=== PATIENT | female | born 2000 | race Caucasian/White ===

== ENCOUNTER 2024-05-16 16:46 | Emergency (ER) | payer OTHER, SELFPAY ==
[2024-05-16 16:46] VITALS: BP 143/98; PULSE 75; RESP 16; TEMP 36.6; O2SAT 98; BMI 33.1
--- NOTE | 2024-05-16 17:38 | EDS_ITS ---
HPI HPI - Female History of Present Illness Chief Complaint: PFSH PFSH Medical History no medical history Home Medications ?Medication ?Instructions ?Recorded ?Last Taken ?Type cephalexin 500 mg capsule 500 mg PO TID 5 days #15 caps 05/16/24 Unknown Rx Allergy/AdvReac Type Severity Reaction Status Date / Time No Known Allergies Allergy Verified 05/16/24 16:48 Family History no significant family his Surgical History no surgical history Social History Smoking Status: Never smoker EXAM Physical Exam Const Vital Signs: 05/16/24 16:46 05/16/24 18:46 05/16/24 20:00 Temperature 98 F Temperature Source Temporal Pulse Rate 75 94 94 Respiratory Rate 16 16 16 Blood Pressure 143/98 H 129/76 H 126/77 H Blood Pressure Mean 113 93 93 Pulse Ox 98 99 99 Oxygen Delivery Method Room Air Room Air Room Air [facility] MDM Narrative Medical decision making narrative: HISTORY OF PRESENT ILLNESS: 23-year-old female presents with lower abdominal pain, vaginal bleeding. No she is 5 weeks . Notes abdominal pain is crampy. No she has not gotten ultrasound this . No she is a G2, P1. No history of miscarriages. No history of ovarian or fallopian tube ambulation. No history of IVF or other infertility treatments. No family history of miscarriages. REVIEW OF SYSTEMS: Pertinent positives: Lower abdominal pain, vaginal bleeding Pertinent negatives: Fever, vomiting PHYSICAL EXAM: Nursing triage notes reviewed, Vital signs reviewed Constitutional: please see mdm HENT: MMM Eyes: Pupils equal round and reactive to light, Extraocular muscles intact Neck: No stridor, no JVD, full neck ROM Lungs: Clear to auscultation, No wheezing or rales. No increased work of breathing, no conversational dyspnea, no accessory muscle use, no nasal flaring. No respiratory distress noted Heart: Regular rate and rhythm, No murmurs, No rubs and No gallops, 2+ distal pulses (radial, femoral, posterior tibial) in all extremities Abdomen: Soft, there is no tenderness, rigidity, rebound or guarding, no obvious peritoneal signs, no palpable pulsatile abdominal masses, no auscultated abdominal bruit : No CVAT Extremities: No edema Neuro: No focal neurological deficits, cranial nerves II through XII intact, 5/5 strength in all extremities. Intact sensation to light touch in all extremities, 2+ reflexes bilateral patella tendons. Normal gait. No ataxia. Skin: No rash or lesions noted MEDICAL DECISION MAKING: Chief Complaint: Abdominal pain, vaginal bleeding, early External records reviewed: Imaging reviewed: No recent advanced [facility] Factors affecting care: First trimester MDM Narrative: Patient was hemodynamically stable, afebrile nontoxic-appearing. Abdomen was nonperitoneal neck I considered the following differential diagnosis: Miscarriage, ectopic I obtained a broad lab and imaging workup to further elucidate etiology the patient complaints. I treat the patient with IV fluids and Toradol Tylenol. ALL IMAGES (IF OBTAINED) HAVE BEEN PERSONALLY REVIEWED AND INTERPRETED BY MYSELF. CBC without leukocytosis, no anemia or thrombocytopenia BMP without evidence of significant electrolyte abnormalities, no anion gap, no acute kidney injury. Urinalysis without evidence of infection Blood type is O- patient will require RhoGAM Transvaginal ultrasound showed no evidence of definitive intrauterine or ectopic . Did show left adnexal anechoic lesion. Discussed with PLASTICS ENGINEER Dr. Teresa Glass. She reviewed the patient's labs and images. She felt the patient's lesion in the left adnexa related to corpus luteum cyst rather than ectopic given stable vitals, no significant pain, no significant distress, no significant anemia, and very low quantitative hCG. I suspect the patient may be an early miscarriage. Dr. Glass further recommended 48-hour hCG check (was ordered on paper form and given to patient) and prompt follow-up in her office. I will attempt to CC her on this chart. The patient and/or family, caregivers express understanding. The patient and/or family, caregivers agrees with the plan. Shared decision making: I will have a discussion with the patient and or visitors regarding risk/benefits of further testing or admission. They will be made aware of of the risk/benefits inherent in this decision they will be given the opportunity to voice understanding. Total critical care time today provided was at least 0 minutes. This excludes separately billable procedures. Critical care time (if documented) is secondary to the patient having high probability of clinically significant/life threatening deterioration in the patient's condition which required my urgent intervention. Impression: 1. First trimester 2. Vaginal bleeding Dispo: Discharge This note was generated with [employer] dictation software. It may contain incorrect words, spelling, and punctuation that were not noted in review of the chart prior to signing. Lab Data Labs: Laboratory Results - last 24 hr 05/16/24 05/16/24 18:06 18:31 WBC 8.1 RBC 5.44 H Hgb 13.1 Hct 41.5 MCV 76.3 L MCH 24.1 L MCHC 31.6 L RDW Std Deviation 39.1 RDW Coeff of Pattie 14.4 Plt Count 310 MPV 9.2 Immature Gran % (Auto) 0.500 Neut % (Auto) 57.8 Lymph % (Auto) 32.4 [place] % (Auto) 7.8 Eos % (Auto) 0.9 Baso % (Auto) 0.6 Absolute Neuts (auto) 4.7 Absolute Lymphs (auto) 2.62 Nucleated RBC % 0 Sodium 141 Potassium 3.7 Chloride 110 H Carbon Dioxide 28.0 Anion Gap 3 L BUN 10 Creatinine 0.69 Estim Creat Clear Calc 145.79 Est GFR (MDRD) Af Amer 135 Est GFR (MDRD) Non-Af 112 BUN/Creatinine Ratio 14.5 Glucose 94 Calcium 9.0 HCG, Quant 20 H Urine Color Red Urine Clarity Turbid Urine pH 8.0 Ur Specific Pfeifer 1.015 Urine Protein 100 H Urine Glucose (UA) Normal Urine Ketones 5 H Urine Occult Blood 250 H Urine Nitrite Negative Urine Bilirubin Negative Urine Urobilinogen Normal Ur Leukocyte Esterase 100 H Urine RBC > 100 SEEN Urine WBC 5-10 SEEN Ur Squamous Epith Cells 5-10 SEEN Amorphous Sediment 1+ PHOS Urine Bacteria 0 SEEN Urine Mucus 0 SEEN Blood Type O NEGATIVE Radiography Diagnostic Testing: Clinical Impression(s) from Imaging Studies Obstetrics Ultrasound 05/16/24 17:52 IMPRESSION: Nonspecific nonvisualization of gestational sac, not expected at current hCG. Differential includes normal early , failed , with ectopic not excluded. Left adnexal unilocular anechoic cyst without complexity or surrounding finding to suggest ectopic . OB evaluation recommended. Recommend trending of hCG in 48 hours with follow-up ultrasound. Normal ovaries. Electronically Signed: Patrick Pizarro MD at 20:50 EDT , Discharge Plan Triage Chief Complaint: Other Complaint: Abd Pain Vag Bleeding ED Provider: Srinivasa Brambila Dx/Rx/DC Orders Instructions: Ectopic , Bleeding During Early Prescriptions: New cephalexin 500 mg capsule 500 mg PO TID 5 Days Qty: 15 0RF Primary Care Provider: Marek Physician,Luanne Primary Referrals: Teresa Glass MD [[facility] Staff - Active Staff] - Activity Restrictions/Additional Instructions: Thank you for trusting us with your care today! Please take Tylenol (2 pills, 650 mg) every 6 hours as needed for pain and fever control. You will need to return in 48 hours for repeat to measure your hormone. Please return to the emergency department if your symptoms change or worsen. Specifically if you develop severe lower abdominal pain, you lose consciousness, have heavy vaginal bleeding, you develop chest pain, shortness of breath. Your urine was shown to have inflammation. I sent your urine for culture. I prescribed you prophylactic antibiotics to treat asymptomatic bacteriuria in . I am treating you with an antibiotic because if left untreated this can cause labor Please follow with your primary care physician for further outpatient evaluation and management. Print Language: Urdu Disposition Disposition: Home, Self Care
--- NOTE | 2024-05-16 17:52 | US_ITS ---
INDICATION: Lower abdominal pain, vaginal bleeding early pregn EXAMINATION: Ultrasound US OB Transvaginal TECHNIQUE: Transvaginal (for optimal evaluation of the adnexa) pelvic ultrasound was performed. Grayscale, spectral waveform, and color flow Doppler evaluation of the adnexa. COMPARISON: None. LMP: [April 08, 2024 correlating with 5 weeks 3 days gestation estimated delivery date January 13, 2025 Beta-hC FINDINGS: UTERUS: Anteverted uterus 8.1 x 3.2 x 4.6. cm with unremarkable myometrium. No visible acute or gestational sac. Endometrial stripe measures 7 mm and is homogeneous. Cervix is grossly closed RIGHT OVARY: 2.8 x 1.7 x 3.9 cm with normal parenchymal appearance and preserved arterial and venous vascular flow. LEFT OVARY: 2.5 x 1.4 x 1.7 cm. with normal parenchymal appearance and preserved arterial and venous vascular flow. . FREE FLUID: None. Left adnexal anechoic 1 cm cyst. US/Transvaginal w/Preg US IMPRESSION: Nonspecific nonvisualization of gestational sac, not expected at current hCG. Differential includes normal early , failed , with ectopic not excluded. Left adnexal unilocular anechoic cyst without complexity or surrounding finding to suggest ectopic . OB evaluation recommended. Recommend trending of hCG in 48 hours with follow-up ultrasound. Normal ovaries. Electronically Signed: Patrick Pizarro MD at 20:50 EDT ,
[2024-05-16] MEDS: 0.9% Normal Saline (1000mL) 1,000 ML 999 ML IV (18:20)
[2024-05-16] MEDS: Acetaminophen 325 MG Tablet 650 MG PO (18:21)
[2024-05-16 18:39] LABS: Bacteria 0 SEEN /hpf (None Seen); Mucous, Urine 0 SEEN /hpf (<or=2+)
[2024-05-16 18:41] LABS: Absolute Lymphocyte Count 2.62 X10^3/uL (0.83-4.51); Absolute Neutrophil Count 4.7 X10^3/uL (2.0-7.7); Basophil# 0.05 X10^3/uL; Basophil% 0.6 % (0-1); Eosinophil# 0.07 X10^3/uL; Eosinophils% 0.9 % (0-5); Hematocrit 41.5 % (37-47); Hemoglobin 13.1 g/dL (12.0-15.0); Lymphocyte # 2.62 X10^3/ul (0.83-4.51); Lymphocyte % 32.4 % (19-41); Mean Corp Hgb Conc 31.6 g/dL (32-36); Mean Corpuscular Hgb 24.1 pg (27.0-32.0); Mean Corpuscular Volume 76.3 fL (81-99); Mean Platelet Vol. 9.2 fl (6.2-12.0); Monocyte# 0.63 X10^3/uL; Monocyte% 7.8 % (0-10); NRBC Flagged by Analyzer 0 % (0-5); Neutrophil # 4.67 X10^3/uL (2.7-7.7); Neutrophil % 57.8 % (47-70); Platelet Count 310 K/mm3 (150-450); RBC Distribution Width CV 14.4 % (11.6-14.6); RBC Distribution Width SD 39.1 fl (35.1-43.9); Red Blood Count 5.44 M/mm3 (4.2-5.4); White Blood Count 8.1 K/mm3 (4.4-11.0)
[2024-05-16 18:46] VITALS: BP 129/76; PULSE 94; RESP 16; O2SAT 99
[2024-05-16 18:51] LABS: Color, Urine Red (Yellow); Glucose, Dipstick Normal (Normal); Ketone-Dipstick 5 mg/dl (Negative); Leukocyte Esterase-Dipstick 100 /ul (Negative); Nitrite-Dipstick Negative (Negative); Occult Blood-Urine 250 /ul (Negative); Protein-Dipstick 100 mg/dl (Negative); Specific Gravity, Urine 1.015 (1.002-1.030); Urine Bilirubin Dipstick Negative (Negative); Urine Clarity Turbid (Clear); Urine Urobilinogen Normal (Normal)
[2024-05-16 18:57] LABS: Anion Gap 3 (5-15); BUN 10 mg/dL (7-18); BUN/Creat Ratio 14.5 RATIO (10-20); Chloride 110 mmol/L (98-107); Creatinine, Serum 0.69 mg/dL (0.55-1.02); EST Glomerular Filtration Rate 112 mL/min (>60); Est Glom Filt Rate - Afr Amer 135 mL/min (>60); Estimated Creatinine Clearance 145.79 ml/min; Glucose 94 mg/dL (74-106); Potassium 3.7 mmol/L (3.5-5.1); Sodium Level 141 mmol/L (136-145)
[2024-05-16 19:02] LABS: hCG Titer Quant., Serum 20 mIU/mL (1-3)
[2024-05-16 19:06] LABS: Red Blood Cells-Urine > 100 SEEN /hpf (0-5); Squamous Epithelial Cells - UA 5-10 SEEN /hpf (5-10); White Blood Cells 5-10 SEEN /hpf (0-5)
[2024-05-16 19:07] LABS: Amorphous Sediment 1+ PHOS
[2024-05-16 20:00] VITALS: BP 126/77; PULSE 94; RESP 16; O2SAT 99
--- NOTE | 2024-05-16 22:32 | ED.RN ---
UNABLE TO SCAN RHOGAM INTO eTAR. RHOGAM WAS VERIFIED WITH MARISSA, NURSING AIRCONDITIONING PLANT OPERATOR. VERIFICATION BLOOD WORK FILLED OUT AND SIGNED BY BOTH RNS. THIS RN CALLED BLOOD BANK, PHARMACY AND [facility] TO SEE IF THERE WAS SOMETHING ELSE TO DO FOR THE ERROR IN THE eTAR. NONE COULD PROVIDE ANSWERS AT THIS TIME.
[2024-05-16 22:34] VITALS: BP 118/86; PULSE 80; RESP 18; O2SAT 98
[2024-05-16 22:36] VITALS: BP 123/73; PULSE 87; RESP 16; TEMP 36.4; O2SAT 100
== END 2024-05-16 22:38 | disposition home or self-care (01) ==
PROVIDERS: Emergency Provider Emergency Medicine; Visit Provider Emergency Medicine
DX: O20.9 Hemorrhage in early pregnancy, unspecified (principal); O34.81 Maternal care for other abnormalities of pelvic organs, first trimester; N83.12 Corpus luteum cyst of left ovary; Z3A.01 Less than 8 weeks gestation of pregnancy; Z67.41 Type O blood, Rh negative
CPT/HCPCS: 76817; 80048; 81001; 84702; 85025; 86900; 86901; 90384; 96360; 99284; J7030; A4216; J2790; J2791

== ENCOUNTER → 2024-05-18 | Outpatient (CLI) | payer OTHER, SELFPAY ==
[2024-05-18 12:28] LABS: hCG Titer Quant., Serum 18 mIU/mL (1-3)
== END | disposition home or self-care (01) ==
LOC: LAB 11:41
PROVIDERS: Referring Provider Emergency Medicine; Visit Provider Emergency Medicine
DX: Z34.90 Encounter for supervision of normal pregnancy, unspecified, unspecified trimester (principal)
CPT/HCPCS: 36415; 84702

== ENCOUNTER → 2024-05-20 | Outpatient (CLI) | payer OTHER, SELFPAY ==
[2024-05-20 13:20] LABS: hCG Titer Quant., Serum 25 mIU/mL (1-3)
== END | disposition home or self-care (01) ==
LOC: LAB 12:06
PROVIDERS: Referring Provider Obstetrics & Gynecology; Visit Provider Obstetrics & Gynecology
DX: O20.0 Threatened abortion (principal)
CPT/HCPCS: 36415; 84702

== ENCOUNTER → 2024-05-23 | Outpatient (CLI) | payer OTHER, SELFPAY ==
[2024-05-23 09:16] LABS: hCG Titer Quant., Serum 52 mIU/mL (1-3)
== END | disposition home or self-care (01) ==
LOC: LAB 07:10
PROVIDERS: Referring Provider Obstetrics & Gynecology; Visit Provider Obstetrics & Gynecology
DX: O20.0 Threatened abortion (principal)
CPT/HCPCS: 36415; 84702

== ENCOUNTER 2024-05-25 16:12 | Emergency (ER) | payer OTHER, SELFPAY ==
[2024-05-25 16:13] VITALS: BP 119/93; PULSE 110; RESP 16; TEMP 36.1; O2SAT 97; BMI 32.8
--- NOTE | 2024-05-25 16:41 | EDS_ITS ---
HPI HPI - Female History of Present Illness Chief Complaint: Female C/O Informant: patient Pain Onset: Today Context: Gradual Onset Timing: Continuous Worsened by: - (Nothing) Relieved by: - (Nothing) Bleeding Issue: Negative for Vaginal bleeding Associated Symptoms Associated Symptoms: Negative for Dysuria, Frequency, Urgency or Hematuria Narrative Narrative: Patient presents for methotrexate injection. Patient states she is approximately 6 weeks . Patient states she had outpatient lab work drawn today. Patient states that her MARKETING DEVELOPMENT SPECIALIST is concerned over possible ectopic . Patient states her quantitative hCGs have not been increasing as expected. Patient denies any pain. Patient denies any nausea or vomiting. Patient denies any abnormal vaginal bleeding or discharge. Patient denies any fevers or chills. PFSH PFSH Medical History no medical history no medical history Home Medications ?Medication ?Instructions ?Recorded ?Last Taken ?Type cephalexin 500 mg capsule 500 mg PO TID 5 days #15 caps 05/16/24 Unknown Rx Allergy/AdvReac Type Severity Reaction Status Date / Time No Known Allergies Allergy Verified 05/25/24 16:13 Family History (Updated 05/20/24 @ 11:30 by Cristina Spann) Grandmother Heart disease Hypertension Bronchial breathing Uncle Hypertension Mother Bronchial breathing Other Breast cancer Surgical History no surgical history no surgical history Social History (Updated 05/20/24 @ 11:27 by Cristina Spann) adopted: No household members: spouse and significant other housing: house number of children: 1 current occupational status: employed current occupation: [employer] pets and animals: Yes pets and animals: dog(s) sexually active: Yes Smoking Status: Former smoker how long ago did patient quit smoking: Quit when with first 2 years ago second hand exposure: No alcohol intake: current alcohol intake frequency: a few times a month details: not while substance use type: does not use caffeine: Yes Type: carbonated beverages and tea seatbelt use: always do you feel safe at home: Yes additional social history: Spouse - Nahun ( EMT in [employer]) ROS ROS ED Constitutional Constitutional ED: Denies chills or fever(s) Eyes Eyes: Denies blurry vision or change in vision ENT ENT ED: Denies rhinorrhea or sore throat Cardiovascular Cardiovascular: Denies chest pain or palpitations Respiratory/Chest Respiratory/Chest: Denies cough or dyspnea Gastrointestinal Gastrointestinal: Denies nausea or vomiting Genitourinary Genitourinary ED: Denies dysuria or hematuria Musculoskeletal Musculoskeletal: Denies back pain or neck pain Integumentary Denies abscess or rash Neurologic Neurologic: Denies headache(s) or weakness Allergic/Immunologic Allergic/Immunologic ED: Denies mouth swelling or urticaria EXAM Physical Exam Const Vital Signs: 05/25/24 16:13 Temperature 96.9 F L Temperature Source Temporal Pulse Rate 110 H Respiratory Rate 16 Blood Pressure 119/93 H Blood Pressure Mean 101 Pulse Ox 97 Oxygen Delivery Method Room Air Positive well nourished and well developed General Appearance ED: well developed and NAD HEENT Reports moist mucous membranes Neck supple and no JVD Resp normal respiratory effort and clear to auscultation bilaterally Cardio regular rate and regular rhythm GI soft to palpation, non-tender and non-distended Neuro oriented x3, CN's II-XII intact bilaterally and no sensory deficits noted Sensorium / Orientation: alert Motor Exam: strength 5/5 throughout Psych mental status grossly normal MDM MDM MDM Narrative Medical decision making narrative: Previous labs were reviewed. Patient's quantitative hCG today was reviewed and was 56. Quantitative hCG from 2 days ago was 52. Case was discussed with Dr. Garcia from MARKETING DEVELOPMENT SPECIALIST. She recommended giving the patient the methotrexate. This was ordered. She will follow-up with the patient in 1 week. Patient was instructed to get a repeat quantitative hCG in 4 days and 7 days. She stated her office will contact her regarding these appointments. Patient was instructed to expect some cramping and bleeding. The patient was instructed to return to the emergency department if worse in any way. Patient understood and was agreeable with the plan. All questions were answered. Discharge Plan Triage Chief Complaint: Female C/O ED Provider: Diaz Will Dx/Rx/DC Orders Clinical Impression: Ectopic , First trimester Instructions: ED Methotrexate for Ectopic ... Prescriptions: No Action cephalexin 500 mg capsule 500 mg PO TID 5 Days Qty: 15 0RF Primary Care Provider: Care Physician,No Primary Referrals: Ana Mathews DO [Med Staff - Active Staff] - 1 Week Care Physician,No Primary [Primary Care Provider] - Activity Restrictions/Additional Instructions: You will need to have repeat quantitative hCGs drawn in [address] Garcia's office will arrange for this. Stop taking any vitamins. Print Language: Upper Sorbian Disposition Disposition: Home, Self Care
[2024-05-25 18:13] VITALS: BP 91/58; PULSE 80; RESP 16; O2SAT 100
[2024-05-25] MEDS: METHOTREXATE IM (18:15)
[2024-05-25 18:37] VITALS: BP 91/58; PULSE 80; RESP 16; TEMP 36.6; O2SAT 100
== END 2024-05-25 18:39 | disposition home or self-care (01) ==
PROVIDERS: Emergency Provider Emergency Medicine; Visit Provider Emergency Medicine
DX: O00.90 Unspecified ectopic pregnancy without intrauterine pregnancy (principal); Z87.891 Personal history of nicotine dependence
CPT/HCPCS: 96372; 99282; J9260

== ENCOUNTER → 2024-05-25 | Outpatient (CLI) | payer OTHER, SELFPAY ==
[2024-05-25 09:05] LABS: hCG Titer Quant., Serum 56 mIU/mL (1-3)
== END | disposition home or self-care (01) ==
LOC: LAB 07:35
PROVIDERS: Referring Provider Obstetrics & Gynecology; Visit Provider Obstetrics & Gynecology
DX: O20.0 Threatened abortion (principal)
CPT/HCPCS: 36415; 84702

== ENCOUNTER → 2024-05-29 | Outpatient (CLI) | payer OTHER, SELFPAY ==
[2024-05-29 12:45] LABS: hCG Titer Quant., Serum 56 mIU/mL (1-3)
== END | disposition home or self-care (01) ==
LOC: LAB 10:40
PROVIDERS: Referring Provider Obstetrics & Gynecology; Visit Provider Obstetrics & Gynecology
DX: O00.90 Unspecified ectopic pregnancy without intrauterine pregnancy (principal)
CPT/HCPCS: 36415; 84702

== ENCOUNTER → 2024-06-01 | Outpatient (CLI) | payer OTHER, SELFPAY ==
[2024-06-01 08:16] LABS: hCG Titer Quant., Serum 37 mIU/mL (1-3)
== END | disposition home or self-care (01) ==
LOC: LAB 06:45
PROVIDERS: Referring Provider Obstetrics & Gynecology; Visit Provider Obstetrics & Gynecology
DX: O00.90 Unspecified ectopic pregnancy without intrauterine pregnancy (principal)
CPT/HCPCS: 36415; 84702

== ENCOUNTER → 2024-06-08 | Outpatient (CLI) | payer OTHER, SELFPAY ==
[2024-06-08 14:54] LABS: hCG Titer Quant., Serum 1 mIU/mL (1-3)
== END | disposition home or self-care (01) ==
LOC: LAB 13:45
PROVIDERS: Referring Provider Obstetrics & Gynecology; Visit Provider Obstetrics & Gynecology
DX: O00.90 Unspecified ectopic pregnancy without intrauterine pregnancy (principal)
CPT/HCPCS: 36415; 84702

== ENCOUNTER → 2024-07-05 | Outpatient (CLI) | payer OTHER, SELFPAY ==
[2024-07-05 11:14] LABS: hCG Titer Quant., Serum 263 mIU/mL (1-3)
== END | disposition home or self-care (01) ==
LOC: LAB 09:23
PROVIDERS: Referring Provider Obstetrics & Gynecology; Visit Provider Obstetrics & Gynecology
DX: O09.10 Supervision of pregnancy with history of ectopic pregnancy, unspecified trimester (principal); Z3A.00 Weeks of gestation of pregnancy not specified
CPT/HCPCS: 36415; 84702

== ENCOUNTER → 2024-07-07 | Outpatient (CLI) | payer OTHER, SELFPAY ==
[2024-07-07 08:41] LABS: hCG Titer Quant., Serum 750 mIU/mL (1-3)
== END | disposition home or self-care (01) ==
LOC: LAB 07:29
PROVIDERS: Referring Provider Obstetrics & Gynecology; Visit Provider Obstetrics & Gynecology
DX: O09.10 Supervision of pregnancy with history of ectopic pregnancy, unspecified trimester (principal); Z3A.00 Weeks of gestation of pregnancy not specified
CPT/HCPCS: 36415; 84702

== ENCOUNTER → 2024-07-15 | Outpatient (CLI) | payer OTHER, SELFPAY ==
--- NOTE | 2024-07-15 11:14 | US_ITS ---
STUDY: FIRST TRIMESTER OBSTETRICAL ULTRASOUND REASON FOR EXAM: Female, 23 years old dating/viability LMP: Unknown TECHNIQUE: Transvaginal TECHNICAL QUALITY: Adequate. PRIOR ULTRASOUND: Comparison is made with prior study dated May 16, 2024. FINDINGS: There is visualization of a single gestational sac in a normal intrauterine position. The mean sac diameter (MSD) measures 1.2 cm, indicating an estimated gestational age (EGA) of 6 weeks, 0 days. The gestational sac shape is within normal limits. There is a visualized yolk sac. The yolk sac measures 3 mm. The placenta is non-visualized. There is no demonstrated embryo ( pole). . The estimated gestation age (EGA) by US is 6 weeks, 0 days. The estimated date of delivery (SHANI) by US is March 10, 2024. The uterus measures 8.9 cm x 6.3 cm x 4.8 cm. There is no demonstrated uterine fibroid. Adjacent to the gestational sac, there is a 2.7 cm x 1.6 cm x 0.9 cm anechoic fluid collection suggestive of possible subchorionic bleed. The cervix is closed. The right ovary measures 2.4 cm x 1.9 cm x 1.9 cm. There is no right ovarian cyst. There is no visualized right adnexal mass or complex lesion. The left ovary measures 2.6 cm x 2.1 cm x 2 cm. A small left paraovarian cyst is seen. There is no visualized left adnexal mass or complex lesion. There is no fluid in the cul de sac. US/Transvaginal w/Preg US IMPRESSION: Intrauterine gestational sac containing a yolk sac. This corresponds to 6 weeks. No pole is seen. Findings suggestive of a small subchorionic bleed. Electronically Signed: Carter Lyman MD at 14:34 EDT ,
== END | disposition home or self-care (01) ==
LOC: US 11:13
PROVIDERS: Referring Provider Obstetrics & Gynecology; Visit Provider Obstetrics & Gynecology
DX: Z34.90 Encounter for supervision of normal pregnancy, unspecified, unspecified trimester (principal); Z3A.00 Weeks of gestation of pregnancy not specified
CPT/HCPCS: 76817

== ENCOUNTER → 2024-07-18 | Outpatient (CLI) | payer OTHER, SELFPAY ==
[2024-07-18 17:49] LABS: hCG Titer Quant., Serum 15740 mIU/mL (1-3)
== END | disposition home or self-care (01) ==
PROVIDERS: Referring Provider Nurse Practitioner Women's Health; Visit Provider Nurse Practitioner Women's Health
DX: Z34.90 Encounter for supervision of normal pregnancy, unspecified, unspecified trimester (principal); Z3A.00 Weeks of gestation of pregnancy not specified
CPT/HCPCS: 36415; 84702

== ENCOUNTER → 2024-07-29 | Outpatient (CLI) | payer OTHER, SELFPAY ==
--- OUTSIDE RECORDS SUMMARY | 2024-07-29 16:02 | XMS RPT_ITS | CCD ---
Author Organization [facility] Results Test Name Value Interpretation Reference Range Facility Telephone Encounteron 2020 Electronic Engraver Authentication Interface Message Text Health Maintenance Due: Medicare AWV/PCP Visit: due Eye Exam: nd Foot Exam: nd Annual Bloodwork: nd SURESH: nd FIT: nd Normal [facility] CHEST 2 VIEW PA AND LATon CHEST 2 VIEW PA AND LAT STUDY: Chest Radiographs; 12/23/2019 18:19 INDICATION: Left side chest wall pain. COMPARISON: None Available. ACCESSION NUMBER(S): [id number] ORDERING CLINICIAN: CORNELL GARCIA DO TECHNIQUE: Frontal and lateral chest. FINDINGS: CARDIOMEDIASTINAL SILHOUETTE: Cardiomediastinal silhouette is normal in size and configuration. LUNGS: Lungs are clear. ABDOMEN: No remarkable upper abdominal findings. BONES: No acute osseous changes. IMPRESSION: No acute process. Signed by Curt Strauss MD Electronically signed by: CURT STRAUSS MD [facility] Provider Note - ED v2on 12-10 Provider Note - ED v2 Provider Note - ED v2: Chart Review: ED NOTES ED NOTES: HPI: The patient is an 18-year-old female with no significant past medical history presenting to the emergency department with a chief complaint of left-sided chest wall, neck, and shoulder pain. The patient reports that one week ago she ran into a wall. She states that she had the lower part of her jaw and the left side of her chest and shoulder into the wall. She reports that since then, she has been having pain across her chest on the left side and into the left side of her neck. She states initially it appeared swollen but now the swelling has gone down. The patient denies any preceding illness including fevers or chills. She denies any weight loss, shortness of breath, or night sweats. She denies any difficulty swallowing. She has tried OTC analgesia and also topical application of let them Biofreeze with minimal relief of symptoms. She reports it is tender to the touch. She also states that she feels the pain when she starts to lift her left shoulder over her head. She is left-handed. She states that afterwards, she was using her arms and doing cartwheels with my friends . He has no additional complaints and present in both right emergency department accompanied by her mother. She denies current . Exam: On exam, the patient's vital signs are stable. The patient is not in any apparent distress. Head atraumatic, normocephalic. TMs are clear, nares are patent, oropharynx is clear, neck is supple. No Shahid sign. No raccoon eyes. No dental injury or malocclusion. The patient has tenderness upon palpation at the base of the left sternocleidomastoid muscle. She reports pain with flexion and extension of the neck. There is no midline neck or back step-off, crepitance, deformities, or tenderness. Heart is regular in rate and rhythm, S1 and S2 are auscultated. Lungs are clear to auscultation bilaterally. The patient localizes tenderness on palpation of the sternum and clavicle on the left. There is no clavicular deformity. The patient has full active and passive range of motion of the left shoulder. Mild tenderness upon palpation of the supraspinatus. No adenopathy present in the cervical, supraclavicular or chest wall region. 5 over 5 and equal bilateral upper and lower extremities. Gait is steady. Nonfocal neurological exam. Peripheral pulses are palpable. HISTORY OF PRESENTING ILLNESS VON is a 19 year old Female and was seen by me at 23-Dec-2019 17:49 for a chief complaint of shoulder pain/injury . Other complaints include: left collarbone/shoulder pain; no injury(1). Triage Information: Most recent Vital Sign Value Date Temp (F): 97.9 12-23-2019 17:45 Temp (C): 36.6 12-23-2019 17:45 Heart Rate (beats/min): 71 12-23-2019 17:45 Respirations (breaths/min): 16 12-23-2019 17:45 SpO2 (%): 100 12-23-2019 17:45 BP Systolic (mm Hg): 134 12-23-2019 17:45 BP Diastolic (mm Hg): 83 12-23-2019 17:45 PAST MEDICAL HISTORY ATTESTATION: I have reviewed and confirmed nurse's/medic's notes for patient's medications, allergies, medical history, and surgical history PSYCHOSOCIAL SCREENING: NO: concerns for safety at home, feelings of depression, feels like hurting others and feels like hurting self CURRENT OR FORMER SUBSTANCE USE: NO: Cigarette/Tobacco, e-Cigarette/Vaping, Alcohol and Street Drugs ALLERGIES/INTOLERANCES: No documented data. HEALTH HISTORY: No documented data. OUTPATIENT MEDICATIONS: Home Medications Review Status for Reconciliation: Complete Med Status: No Current Medications SIGNIFICANT EVENTS: No documented data. LABELER: Is : no(1) Is : no(1) REVIEW OF SYSTEMS CONSTITUTIONAL: Negative for: anorexia, chills, diaphoresis, fever, malaise, weakness and weight loss EYES: Negative for: photophobia and vision changes ENMT Ears: Negative for: hearing loss and tinnitus Nose: Negative for: congestion, discharge, nose bleeds, obstruction and sneezing Mouth/Teeth: Negative for: mouth lesions and tooth trauma Throat/Neck: POSITIVE for: neck pain Negative for: dysphagia, hoarseness, throat lesions, throat pain, neck lumps, neck stiffness and swollen glands CARDIOVASCULAR: Negative for: bradycardia, chest pain, diaphoresis, edema, irregular rhythm, orthopnea, palpitations and tachycardia RESPIRATORY: Negative for: cough, dyspnea, hemoptysis, pleuritic chest pain and wheezing GASTROINTESTINAL: Negative for: abdominal pain, constipation, diarrhea, nausea and vomiting; change in bowel habits, hematochezia, melena, rectal pain and stool incontinence GENITOURINARY: Negative for: cloudy urine, dysuria, frequency, hematuria, strong smelling urine, urgency, vaginal bleeding and vaginal discharge; MUSCULOSKELETAL: POSITIVE for: neck pain and pain Negative for: back pain, sensory deficits, stiffness and weakness INTEGUMENTARY: Negative for: abrasions, dryness, hives, itching, jaundice, lesions and lumps; NEUROLOGICAL: Negative for: altered mental status, dizziness, gait abnormality, headache, loss of consciousness, loss of function and low extremity numbness; sensory deficits, upper extremity numbness and vertigo PSYCHIATRIC: Negative for: anxiety, depression, hallucinations, insomnia, memory changes and mood swings ENDOCRINE: Negative for: change in weight, cold/heat tolerance, diabetes, hot flashes, polydipsia, polyuria and thyroid trouble All other systems reviewed and are negative RESULTS/VITAL SIGNS RESULTS: Radiology Results: Impression: No acute process. Signed by Curt Strauss MD Xray Chest 2 View PA + Lateral [Dec 23 2019 7:02PM] VITAL SIGNS: T PRBP SpO2O2(LPM) %FiO2 Method 23-Dec-2019 17:45:[id number] 100 MEDICAL DECISION MAKING/ED COURSE MDM/ED COURSE: Differential diagnoses considered include musculoskeletal strain, chest wall contusion, clavicle fracture, rotator cuff strain, lymphadenopathy, thyromegaly or chondritis, nerve entrapment, rib fracture. The patient declines analgesia at this time. Chest x-ray is requested. Chest x-ray has resulted. No evidence of acute skeletal trauma or cardiopulmonary process appreciated. The patient's symptoms are more suggestive of musculoskeletal neck and chest wall strain. Outpatient conservative management as advised. The patient may take an [id number] analgesic such as acetaminophen and/or ibuprofen. She may apply topical liniment Biofreeze. She also may benefit from application of ice or heat to the site. Results of diagnostic studies are discussed with the patient and her mother. The patient verbalizes understanding. All other questions have been answered. She is advised outpatient follow-up with her primary care provider. She is welcome to return for any worsening symptoms. CLINICAL IMPRESSION Diagnosis/Annotation: ED Dx Name:Muscle strain of right shoulder region Code:S46.911A Dispostion: discharged Type: home Electronic Signatures: Cornell Garcia () (Signed 23-Dec-2019 19:12) Authored: Provider Note - ED v2 Last Updated: 23-Dec-2019 19:12 by Cornell Garcia () References: 1. Data Referenced From Triage - ED 23-Dec-2019 17:45 [facility] Risk Screen - Adult Emergenc yon 12-23-2019 Risk Screen - Adult Emergency Preferred Language: Preferred Language: Preferred Language for Discussing Health Care (patient/designee)Roger quan Advanced Directives: Advance Directive/DNRno Family Violence Adult: Abuse Screen: Are you or have you been threatened or abused physically, emotionally, or sexually by anyoneno Learning Assessment (Patient): Learning Assessment (Patient): Patient is Able to be Assessed for Learningyes Factors Influencing Readiness to Learnacuteness of illness Factors that Impact Ability to Learnnone Devices/Methods Used to Communicatenone Learning Preferenceswritten material; verbal instruction Cultural Considerationsnone Developmental Considerationsnone Scientology Considerationsnone Learning Assessment (Other Learner): Learning Assessment (Other Learner): Other learner availableno Pressure Injury/TB/Substance: Pressure Injury: Pressure Injury Present on Admissionno Do you have a coughno Substance Use Current or Former Historynever: Cigarette/Tobacco, e-Cigarette/Vaping, Alcohol, Street Drugs Admission Risk Screen: Significant IndicatorsComplete CAGE: CAGE: [place] an [place] [place] no Electronic Signatures: Wendy Lira (RN) (Signed 23-Dec-2019 17:48) Authored: Preferred Language, Advanced Directives, Family Violence Adult, Learning Assessment (Patient), Learning Assessment (Other Learner), Pressure Injury/TB/Substance, CAGE Last Updated: 23-Dec-2019 17:48 by Wendy Lria (RN) [facility] Triage - EDon 12-23-2019 Triage - ED Quick Triage: The patient and/or guardian verbally acknowledges placement for services into the following (when Urgent Care Service hours are operating):emergency department Are You no Have You Given In The Last 6 Weeksno Are You Currently Breastfeedingno Chart Review: CHIEF COMPLAINT VON STRATTON is a Female patient with a chief complaint of shoulder pain/injury. Onset of the Complaint: 22-Dec-2019 Other Complaints: left collarbone/shoulder pain; no injury Triage Date/Time: 23-Dec-2019 17:45 Pain Rating (0-10): 6 = Moderate Pain location: left shoulder Vital Signs: Temperature: 97.9F ( 36.6C) taken oral Blood Pressure: 134/83 Mean: Heart Rate: 71 Respiratory Rate: 16 Pulse Oximetry: 100% Height: 5 feet 6.00 inches. 167.6 CM Weight: 163.1 pounds. Calculated 74.0 kg. Calculated BMI (kg/m2): 26.344 Calculated BSA (m2) 1.86 Elan Coma Scale: Best Eye Response: (E4) spontaneous Best Motor Response: (M6) obeys commands Best Verbal Response: (V5) oriented [place] Score: 15 Cough lasting greater than 3 weeks: no Allergies: no Mask applied: no Last menstrual period: 19-Dec-2019 Patient has homicidal thoughts: no TANK: 4 Symptoms Are Negative For: abrasion, bleeding, bruising, deformity, difficulty bending, difficulty walking, numbness, pain (describe), decreased ROM and tingling. Risk Screens Suicide Risk Screen In the Past Month: Have you wished you were or wished you could go to sleep and not wake up no In the Past Month: Have you had any actual thoughts of killing yourself no In Your Lifetime: Have you ever done anything, started to do anything, or prepared to do anything to end your life no Emerson Fall Scale Screening Has the patient fallen before (or is the patient in the ED as a result of a fall) has not had a fall Does the patient have an impaired gait does not have impaired gait Is the patient cognitively impaired not cognitively impaired Interventions: Emerson Fall Interventions: *patient oriented to surroundings and call system, * patient/family falls education completed and documented, *patients fall status communicated during bedside handoff, *whiteboard updated, *mode of toileting discussed with patient, *bed in low position with brakes locked, *call light in reach, * non-skid footwear PAIN Pain Scale Used: MIRLANDE Pain Rating (0-10): 6 = Moderate ARRIVAL INFORMATION Means of Arrival: Ambulatory Mode of Arrival: private vehicle Arrival From: home Accompanied By: self Language: Spoken Language Preferred: Grenadian Reading Language Preferred: Grenadian Fiscal Analyst Requested: no assembler piano was requested PRIMARY ASSESSMENT VON STRATTON's primary assessment is Within Defined Limits. The airway is open and patent. Breathing spontaneous and unlabored with clear breath sounds bilaterally. Circulation is normal with good peripheral pulses. Skin is warm and dry and color is normal for race. TRAVEL HISTORY Travel History Coronavirus Screening: no exposure or symptoms Travel Exposure History: NO travel to International locations in the past 30 days Past Medical History: Past Medical History Reviewedyes Electronic Signatures: Wendy Lira (REJI) (Signed 23-Dec-2019 17:48) Authored: Triage, Past Medical History Last Updated: 23-Dec-2019 17:48 by Wendy Lira) [facility] Group A Strep by PCRon 11-19 GAS Specimen Source Throat Swab [facility] Comment on above: Performed By: #### G ASPCR ####[facility] [address] [place], [place] [phone] Group A Strep PCR Positive Critically abnormal [facility] Comment on above: Result Comment: This test was developed and its performance characteristics determined by [facility] [place] ([facility]).It has not been cleared or approved by the FDA. [facility] is regulated under CLIA as qualified to perform high-complexity testing. This test is used for clinical purposes. It should not be regarded as investigational or for research. Performed By: #### G ASPCR ####[facility] [address] [place], [place] [phone] PROGRESSon 11-19-2017 PROGRESS HNO ID: [id number]: Jean Santosvice: (none)Author Type: Nurse PractitionerType: Progress NotesFiled: 11/19/2017 6:41 PMNote Text:Patient is a 17 year old female presenting with sore throat. The historyis provided by the patient and a parent. No foreign language interpreter was used.Sore ThroatThis is a new problem. The current episode started in the past 7 days(Thursday am). The problem has been gradually worsening. The pain is worseon the left side. The maximum temperature recorded prior to her arrivalwas 101 - 101.9 F (Nothing now, she took 400mg Ibuprofen at 5pm). Thefever has been present for 1 to 2 days. The pain is at a severity of 7/10.The pain is moderate. Associated symptoms include congestion. Associatedsymptoms comments: Chills, vomiting Thursday pm Thursday pm and this am.She has had exposure to strep. She has tried NSAIDs for the symptoms. Thetreatment provided mild relief.Review of SystemsConstitutional: Positive for chills, fever and malaise/fatigue.HENT: Positive for congestion and sore throat.All other systems reviewed and are negative.Physical ExamConstitutional: She is well-developed, well-nourished, and in no distress.No distress.HENT:Right Ear: Tympanic membrane, external ear and ear canal normal.Left Ear: Tympanic membrane, external ear and ear canal normal.Nose: Nose normal.3+ tonsillar hypertrophy with erythema and exudateLymphadenopathy: Head (right side): Tonsillar adenopathy present. Head (left side): Tonsillar adenopathy present.With tendernessNursing note and vitals reviewed.ASSESSMENT/ROSA N:1. Pharyngitis, unspecified etiology - ICD9: 462, ICD10: J02.9- suspect strep- Rapid Strep negative in the office today- overnight throat culture pending and Amoxicillin for 10 days.- Discussed supportive care treatment with fluids, rest and analgesia.- Contagious dz precautions discussed- including considered contagiousuntil on antibiotics for 24 hours- The patient should follow up in one week if symptoms persist or worsen- Call back if drooling, increased temperature, symptoms of dehydrationand/or still sick in one week- RAPID STREP TEST B/O- GROUP A STREPTOCOCCUS BY Ruth Robles CNP [facility] Encounters Encounter Date Encounter Type Care Provider Facility Start: 11-19-2017 End: 11-19-[address] [facility] Summary Purpose Family History No Family History Records FoundNo Family History Records FoundNo Family History Records Found Advance Directives No Advanced Directives Records FoundNo Advanced Directives Records FoundNo Advanced Directives Records Found Additional Source Comments INFORMATION SOURCE (unrecogn ized section and content) DATE CREATED AUTHOR 04/05/2018 [facility] DATE CREATED AUTHOR AUTHOR'S ORGANIZ ATION 01/20/2020 [facility] DATE CREATED AUTHOR AUTHOR'S ORGANIZ ATION 11/26/2021 [facility] [place] FOR RECORDS PERTAINING TO PATIENTS WHO ARE OR HAVE BEEN ENROLLED IN A CHEMICAL DEPENDENCY/SUBSTANCEABUSE PROGRAM, SOME INFORMATION MAY BE OMITTED. This clinical summary was aggregated from multiple sources. Caution should be exercised in using it in the provision of clinical care. This summary normalizes information from multiple sources, and as a consequence, information in this document may materially change the coding, format and clinical context of patient data. In addition, data may be omitted in some cases. CLINICAL DECISIONS SHOULD BE BASED ON THE PRIMARY CLINICAL RECORDS. [facility] [employer] provides no warranty or guarantee of the accuracy or completeness of information in this document.
[2024-08-01 19:07] LABS: Chlamydia By Nucleic Acid AMP Negative (Negative); Gonococcus By Nucleic Acid AMP Negative (Negative)
== END | disposition home or self-care (01) ==
PROVIDERS: Referring Provider Advanced Practice Midwife; Visit Provider Advanced Practice Midwife
DX: O99.210 Obesity complicating pregnancy, unspecified trimester (principal); Z3A.00 Weeks of gestation of pregnancy not specified
CPT/HCPCS: 87086; 87491; 87591

== ENCOUNTER → 2024-08-31 | Outpatient (CLI) | payer OTHER, SELFPAY ==
[2024-08-31 12:24] LABS: Absolute Lymphocyte Count 1.31 X10^3/uL (0.83-4.51); Absolute Neutrophil Count 4.8 X10^3/uL (2.0-7.7); Basophil# 0.03 X10^3/uL; Basophil% 0.4 % (0-1); Eosinophil# 0.02 X10^3/uL; Eosinophils% 0.3 % (0-5); Hematocrit 38.3 % (37-47); Hemoglobin 12.8 g/dL (12.0-15.0); Lymphocyte # 1.31 X10^3/ul (0.83-4.51); Lymphocyte % 19.2 % (19-41); Mean Corp Hgb Conc 33.4 g/dL (32-36); Mean Corpuscular Hgb 25.9 pg (27.0-32.0); Mean Corpuscular Volume 77.4 fL (81-99); Mean Platelet Vol. 9.7 fl (6.2-12.0); Monocyte# 0.57 X10^3/uL; Monocyte% 8.4 % (0-10); NRBC Flagged by Analyzer 0 % (0-5); Neutrophil # 4.82 X10^3/uL (2.7-7.7); Neutrophil % 70.8 % (47-70); Platelet Count 246 K/mm3 (150-450); RBC Distribution Width CV 15.2 % (11.6-14.6); RBC Distribution Width SD 41.3 fl (35.1-43.9); Red Blood Count 4.95 M/mm3 (4.2-5.4); White Blood Count 6.8 K/mm3 (4.4-11.0)
[2024-08-31 13:43] LABS: HIV - WCH Non-Reactive (Nonreactive); Hepatitis B Surface Antigen Non-Reactive (Nonreactive); Hepatitis C Antibody Non-Reactive (Nonreactive); Rubella IgG Reactive (Nonreactive); Syphilis Antibodies Non-reactive
== END | disposition home or self-care (01) ==
LOC: BWCLAB 12:01
PROVIDERS: Advanced Practice Midwife; Referring Provider Obstetrics & Gynecology; Visit Provider Obstetrics & Gynecology
DX: Z34.81 Encounter for supervision of other normal pregnancy, first trimester (principal)
CPT/HCPCS: 36415; 83036; 85025; 86703; 86762; 86780; 86803; 86850; 86900; 86901; 87340

== ENCOUNTER → 2024-12-20 | Outpatient (CLI) | payer OTHER, SELFPAY ==
[2024-12-20 10:01] LABS: Absolute Lymphocyte Count 1.78 X10^3/uL (0.83-4.51); Absolute Neutrophil Count 4.2 X10^3/uL (2.0-7.7); Basophil# 0.03 X10^3/uL; Basophil% 0.5 % (0-1); Eosinophil# 0.03 X10^3/uL; Eosinophils% 0.5 % (0-5); Hematocrit 36.7 % (37-47); Hemoglobin 12.1 g/dL (12.0-15.0); Lymphocyte # 1.78 X10^3/ul (0.83-4.51); Lymphocyte % 27.2 % (19-41); Mean Corpuscular Hgb 26.1 pg (27.0-32.0); Mean Corpuscular Volume 79.3 fL (81-99); Mean Platelet Vol. 10.3 fl (6.2-12.0); Monocyte# 0.45 X10^3/uL; Monocyte% 6.9 % (0-10); NRBC Flagged by Analyzer 0 % (0-5); Neutrophil # 4.22 X10^3/uL (2.7-7.7); Neutrophil % 64.4 % (47-70); Platelet Count 224 K/mm3 (150-450); RBC Distribution Width CV 13.6 % (11.6-14.6); RBC Distribution Width SD 38.6 fl (35.1-43.9); Red Blood Count 4.63 M/mm3 (4.2-5.4); White Blood Count 6.5 K/mm3 (4.4-11.0)
[2024-12-20 11:07] LABS: Glucose Challenge Gest 1H 50g 135 mg/dL (70-140); HIV Nonreactive (Nonreactive); Syphilis Antibodies Nonreactive (Nonreactive)
== END | disposition home or self-care (01) ==
PROVIDERS: Nurse Practitioner Women's Health; Referring Provider Advanced Practice Midwife; Visit Provider Advanced Practice Midwife
DX: O99.210 Obesity complicating pregnancy, unspecified trimester (principal); Z13.1 Encounter for screening for diabetes mellitus
CPT/HCPCS: 36415; 82950; 85025; 86703; 86780; 86850; 86900; 86901

== ENCOUNTER → 2024-12-22 | Outpatient (CLI) | payer OTHER, SELFPAY ==
[2024-12-22 07:18] LABS: Glucose GTT-Gestation. Fasting 81 mg/dL (<105)
[2024-12-22 09:30] LABS: Glucose GTT-Gestational 1 Hr 142 mg/dL (<190)
[2024-12-22 11:33] LABS: Glucose GTT-Gestational 3 Hr 107 L (<145)
[2024-12-22 11:33] LABS: Glucose GTT-Gestational 2 Hr 142 mg/dL (<165)
== END | disposition home or self-care (01) ==
PROVIDERS: Referring Provider Nurse Practitioner Women's Health; Visit Provider Nurse Practitioner Women's Health
DX: O99.810 Abnormal glucose complicating pregnancy (principal); Z3A.00 Weeks of gestation of pregnancy not specified
CPT/HCPCS: 36415; 82951; 82952

== ENCOUNTER → 2025-02-21 | Outpatient (CLI) | payer OTHER, SELFPAY ==
[2025-02-21 09:57] LABS: Absolute Lymphocyte Count 1.84 X10^3/uL (0.83-4.51); Absolute Neutrophil Count 4.6 X10^3/uL (2.0-7.7); Basophil# 0.02 X10^3/uL; Basophil% 0.3 % (0-1); Eosinophil# 0.03 X10^3/uL; Eosinophils% 0.4 % (0-5); Hematocrit 34.6 % (37-47); Hemoglobin 11.2 g/dL (12.0-15.0); Lymphocyte # 1.84 X10^3/ul (0.83-4.51); Lymphocyte % 25.8 % (19-41); Mean Corp Hgb Conc 32.4 g/dL (32-36); Mean Corpuscular Hgb 24.7 pg (27.0-32.0); Mean Corpuscular Volume 76.4 fL (81-99); Mean Platelet Vol. 10.5 fl (6.2-12.0); Monocyte% 8.4 % (0-10); NRBC Flagged by Analyzer 0 % (0-5); Neutrophil # 4.57 X10^3/uL (2.7-7.7); Neutrophil % 64.3 % (47-70); Platelet Count 216 K/mm3 (150-450); RBC Distribution Width CV 14.1 % (11.6-14.6); RBC Distribution Width SD 38.4 fl (35.1-43.9); Red Blood Count 4.53 M/mm3 (4.2-5.4); White Blood Count 7.1 K/mm3 (4.4-11.0)
[2025-02-21 10:33] LABS: Protein, Urine (Random) 37.2 mg/dL (0.0-12.0); Protein:Creat Ratio 134 mg/g CRE (0-200)
[2025-02-21 10:35] LABS: ALB/GLOB Ratio 1.1 RATIO (0.9-2.4); AST(SGOT) 16 U/L (<=31); Alanine Aminotransfer ALT/SGPT 17 U/L (<=34); Albumin, Serum 3.3 g/dL (3.5-5.0); Alkaline Phosphatase 144 U/L (35-104); Anion Gap 11 (5-15); BUN 7 mg/dL (4-19); BUN/Creat Ratio 14.5 RATIO (10-20); Calcium,Total 8.7 mg/dL (7.6-11.0); Carbon Dioxide 20.8 mmol/L (21.0-32.0); Chloride 105 mmol/L (98-108); Creatinine, Serum 0.51 mg/dL (0.70-1.20); EST Glomerular Filtration Rate 133 (>60); Globulin 3.1 g/dL (2.2-4.2); Glucose 83 mg/dL (70-99); Potassium 3.7 mmol/L (3.3-5.1); Protein, Total 6.4 g/dL (5.9-8.4); Sodium Level 136 mmol/L (133-145); Total Bilirubin 0.28 mg/dL (0.00-1.30)
== END | disposition home or self-care (01) ==
PROVIDERS: Referring Provider Obstetrics & Gynecology; Visit Provider Obstetrics & Gynecology
DX: O16.3 Unspecified maternal hypertension, third trimester (principal); Z3A.00 Weeks of gestation of pregnancy not specified
CPT/HCPCS: 36415; 80053; 82570; 84156; 85025; 87081

== ENCOUNTER 2025-02-28 12:03 | Inpatient (IN) | payer OTHER, SELFPAY ==
[2025-02-28] VITALS (56 sets, daily range): BP systolic 117–146; BP diastolic 69–101; PULSE 74–109; RESP 16–18; TEMP 36.9–37.9; O2SAT 97–99; BMI 33.0
[2025-02-28] MEDS: 0.9% Saline Lock 10 ML Syringe IV ×2 (10:05→13:51)
[2025-02-28 10:08] LABS: Protein, Urine (Random) 45.6 mg/dL (0.0-12.0); Protein:Creat Ratio 197 mg/g CRE (0-200)
[2025-02-28 10:22] LABS: Hematocrit 33.4 % (37-47); Mean Corp Hgb Conc 32.9 g/dL (32-36); Mean Corpuscular Hgb 24.6 pg (27.0-32.0); Mean Corpuscular Volume 74.6 fL (81-99); Mean Platelet Vol. 10.4 fl (6.2-12.0); Platelet Count 212 K/mm3 (150-450); RBC Distribution Width CV 14.3 % (11.6-14.6); Red Blood Count 4.48 M/mm3 (4.2-5.4); White Blood Count 7.7 K/mm3 (4.4-11.0)
[2025-02-28 10:45] LABS: AST(SGOT) 15 U/L (<=31); Alanine Aminotransfer ALT/SGPT 15 U/L (<=34); Creatinine, Serum 0.53 mg/dL (0.70-1.20); EST Glomerular Filtration Rate 133 (>60); Estimated Creatinine Clearance 188.05 ml/min (50-250)
[2025-02-28 11:14] LABS: Uric Acid 4.8 mg/dL (2.6-6.0)
--- NOTE | 2025-02-28 11:57 | HP.PCM.OB_ITS ---
HPI - General General Date of Admission: 02/28/25 Date of Service: 02/28/25 HPI Nestor ISIDRO, is a 24 F 37.6 weeks who presents to unit after appt in office. Was sent to unit for elevated BP and protein in urine. BPs continue to be mildly elevated. Pre e labs are normal. Consulted with Dr Glass and decision made for induction due to BPs Maternal Data Information SHANI Calculator Estimated Delivery Date Method Current WG Current Estimate 03/15/25 Ultrasound #1 37w 6d Other Estimates 03/12/25 Ultrasound #2 38w 2d Final SHANI: 03/15/25 Final SHANI Source: US >20 weeks Gestational age: 37.6 PFSH PFSH Medical History Ectopic Home Medications ?Medication ?Instructions ?Recorded ?Last Taken ?Type multivit-min no.71-iron fum 28 1 cap PO 07/12 05/04 Unknown History mg-folate no.1 1 mg-dha 300 mg capsule (PNV-[place]) ferrous sulfate 325 mg (65 mg 325 mg PO QDAY 07/29/24 Unknown History iron) tablet (Iron (ferrous sulfate)) Allergy/AdvReac Type Severity Reaction Status Date / Time No Known Allergies Allergy Verified 02/28/25 10:07 Family History Grandmother Heart disease Hypertension Bronchial breathing Uncle Hypertension Mother Bronchial breathing Other Breast cancer Social History adopted: No household members: spouse and children housing: house number of children: 1 current occupational status: employed current occupation: [employer] current occupational exposures/hazards: No pets and animals: Yes (3) pets and animals: dog(s) history of recent travel: No sexually active: Yes Smoking Status: Former smoker how long ago did patient quit smoking: Quit when with first 2 years ago second hand exposure: No alcohol intake: current alcohol intake frequency: a few times a month details: not while substance use type: does not use well-balanced diet: daily or most days caffeine: Yes (less than daily) Type: carbonated beverages and tea eating out: rarely or never during the past year weight has: increased > 10 lbs what type of physical activity do you participate in: walking frequency: daily duration: 15-30 minutes/day pat/lutheran: None seatbelt use: always do you feel safe at home: Yes additional social history: Spouse - Nahun ( EMT in [place]) History 3 Elective abortions Hx Para 1 Spontaneous abortions Hx # Term Pregnancies Ectopic pregnancies 1 Hx # Pregnancies Multiple births # of living children 1 Past Pregnancies Del. Date Name GA/Weeks Outcome Route Bth Weight Gen Labor Lgth Anesthesia Del Locatn Provider FOB 04/08/23 Henrik 41 live - full term 8#8 Male epidural [facility] [place] Nahun Delivery Date: 04/08/23 Last Updated by: Suzanne Almaguer iol post dates Visit Details Expected Delivery Route/Plan Labor Preferences- CB/BF classes: no labor support person: [] labor intervention preferences: [] pain management options preferred: [] cut cord/dad catch: [] : [] PP control planned: discussed discussed possible routes of delivery and associated risks: [] special requests: [] Plans Covid status: [] Flu vaccine: declined Tdap vaccine: [] Rhogam: deferred. Baby RH negative LARC form signed: yes movement and labor precautions reviewed. Problem list reviewed and updated with the most current plan of care details and appropriate orders placed. Relevant counseling for the gestational age provided. Continue routine care and follow up unless otherwise noted in visit notes/problem list details OB Flowsheet Initial Weight: 207 lb Date -?-?-?-?-?-?-?-?-?-?-?-?- EGA Weight BP Urine Prot -?-?-?-?-?-?-?-?-?-?-?-?- Glucose FHR FuHt Pres Dilation -?-?-?-?-?-?-?-?-?-?-?-?- Effaced St Visit Note 07/29/24 -?-?-?-?-?-?-?-?-?-?-?-?- 7w 2d 207 lb (+0 oz) 120/75 -?-?-?-?-?-?-?-?-?-?-?-?- 163 -?-?-?-?-?-?-?-?-?-?-?-?- CRL cons with phyllis maier. accepts nipt at next visit 08/31/24 -?-?-?-?-?-?-?-?-?-?-?-?- 12w 0d 201 lb (-6 lb) 126/84 Negative -?-?-?-?-?-?-?-?-?-?-?-?- Negative 170 -?-?-?-?-?-?-?-?-?-?-?-?- SM- no vb crampi ng co vulvar irritation- seen and cracked irritated skin no ulcers or lesions, contact dermatitis suspected discussed avoidance of irritatnts and use of skin barrier ointments, fu if no improvement 09/30/24 -?-?-?-?-?-?-?-?-?-?-?-?- 16w 2d 198 lb 4 oz (-8 lb 12 oz) 120/83 Trace -?-?-?-?-?-?-?-?-?-?-?-?- Negative 150 -?-?-?-?-?-?-?-?-?-?-?-?- SM- no vb crampi ng 10/25/24 -?-?-?-?-?-?-?-?-?-?-?-?- 19w 6d 196 lb 6 oz (-10 lb 10 oz) 111/75 Negative -?-?-?-?-?-?-?-?-?-?-?-?- Negative 145 -?-?-?-?-?-?-?-?-?-?-?-?- SM- no vb crampi ng 11/22/24 -?-?-?-?-?-?-?-?-?-?-?-?- 23w 6d 197 lb 4 oz (-9 lb 12 oz) 106/82 Negative -?-?-?-?-?-?-?-?-?-?-?-?- Negative 146 -?-?-?-?-?-?-?-?-?-?-?-?- MH-No VB. Barry Oh done 12/20/24 -?-?-?-?-?-?-?-?-?-?-?-?- 27w 6d 198 lb 6 oz (-8 lb 10 oz) 104/76 Negative -?-?-?-?-?-?-?-?-?-?-?-?- Negative 142 28 -?-?-?-?-?-?-?-?-?-?-?-?- MH-No VB, LOF. G ood FM. 28 wk labs pending 01/03/25 -?-?-?-?-?-?-?-?-?-?-?-?- 29w 6d 198 lb 8 oz (-8 lb 8 oz) 108/77 Negative -?-?-?-?-?-?-?-?-?-?-?-?- Negative 140 30 -?-?-?-?-?-?-?-?-?-?-?-?- KW- no vb/lof/ct x. good fm. Tdap today. 01/17/25 -?-?-?-?-?-?-?-?-?-?-?-?- 31w 6d 199 lb (-8 lb) 123/84 Negative -?-?-?-?-?-?-?-?-?-?-?-?- Negative 140 32 -?-?-?-?-?-?-?-?-?-?-?-?- SM- no vb lof go od fm nor egular ctx 01/30/25 -?-?-?-?-?-?-?-?-?-?-?-?- 33w 5d 201 lb (-6 lb) 116/77 Trace -?-?-?-?-?-?-?-?-?-?-?-?- Negative 160 32 -?-?-?-?-?-?-?-?-?-?-?-?- KW- no vb/lof/ c tx. good fm. no concerns. GBS next visit. 02/13/25 -?-?-?-?-?-?-?-?-?-?-?-?- 35w 5d 203 lb (-4 lb) 118/78 Negative -?-?-?-?-?-?-?-?-?-?-?-?- Negative 145 35 Cephalic -?-?-?--?-?-?-?-?-?-?-?-?- JV- no lof, vagi nal bleeding or dec fm GBS at 36 weeks. 02/21/25 -?-?-?-?-?-?-?-?-?-?-?-?- 36w 6d 204 lb 4 oz (-2 lb 12 oz) 134/88 1+ -?-?-?-?-?-?-?-?-?-?-?-?- Negative 130 35 Cephalic 3 -?-?-?-?-?-?-?-?-?-?-?-?- 60 -2 SM- no vb lof good fm nor euglar ctx no SEN BV. check pree labs due to proteinuria 02/28/25 -?-?-?-?-?-?-?-?-?-?-?-?- 37w 6d 208 lb (+16 oz) 136/97 1+ -?-?-?-?-?-?-?-?-?-?-?-?- Negative 130 36 Cephalic 4 -?-?-?-?-?-?-?-?-?-?-?-?- 70 -2 KW- no vb/ lof/ctx. good fm. To for labs and BP monitoring. NST FHR Rate Baby A Baseline: 130 Variability:: Moderate Accelerations:: 15 x 15 Decelerations:: None NST Reactive:: Yes FHR Category:: Category I Uterine Activity:: rare ROS Constitutional Constitutional: Denies change in weight, fatigue, fever(s), headache(s), poor appetite or weakness Eyes Eyes: Denies blurry vision, change in vision, floaters, seeing flashes or spots in vision ENT HEENT: Denies dizziness, headache(s), loss taste/smell or sore throat Cardiovascular Cardiovascular: Denies chest pain, dizziness, dyspnea, irregular heart rhythm, lightheadedness, palpitations or rapid heart rate Respiratory/Chest Respiratory/Chest: Denies change in mental status, chest tightness, cough, dyspnea or breast pain Gastrointestinal Gastrointestinal: Denies anorexia, chewing difficulty, constipation, diarrhea or weight changes Genitourinary Genitourinary: Denies difficulty urinating, dysuria, flank pain, genital pain, urinary frequency or urinary urgency Musculoskeletal Musculoskeletal: Denies back pain, difficulty walking, extremity pain, joint pain, muscle cramps or muscle weakness Integumentary Integumentary: Denies lesions or unusual bruising Neurologic Neurologic: Denies abnormal movements, abnormal speech, dizziness, numbness, seizure-like activity, syncope or weakness Psychiatric Psychiatric: Denies behavioral changes, change in appetite, confusion, depression, homicidal ideation, suicidal ideation or suicidal thoughts Endocrine Endocrinology: Denies excessive sweating, polydipsia or polyuria Hematologic/Lymphatic Hematologic/Lymphatic: Denies anemia Allergic/Immunologic Allergic/Immunologic: Denies itchy eyes, lip swelling, throat swelling, tongue swelling or wheezing Vital Signs Vital Signs Vital Signs: 02/28/25 09:38 02/28/25 09:38 02/28/25 09:38 Temperature Temperature Source Temporal Pulse Rate 80 Respiratory Rate Blood Pressure BP Systolic BP Diastolic Pulse Ox 98 02/28/25 09:38 02/28/25 09:38 02/28/25 09:38 Temperature 99.2 F H Temperature Source Pulse Rate Respiratory Rate 16 Blood Pressure BP Systolic BP Diastolic Pulse Ox 98 02/28/25 09:41 02/28/25 09:41 02/28/25 09:55 Temperature Temperature Source Pulse Rate 81 Respiratory Rate Blood Pressure 136/98 H 146/101 H BP Systolic 136 146 BP Diastolic 98 101 Pulse Ox 02/28/25 09:55 02/28/25 10:10 02/28/25 10:10 Temperature Temperature Source Pulse Rate 83 81 Respiratory Rate Blood Pressure 131/87 H BP Systolic 131 BP Diastolic 87 Pulse Ox 02/28/25 10:25 02/28/25 10:25 02/28/25 10:40 Temperature Temperature Source Pulse Rate 80 Respiratory Rate Blood Pressure 124/86 H 121/82 H BP Systolic 124 121 BP Diastolic 86 82 Pulse Ox 02/28/25 10:40 02/28/25 10:55 02/28/25 10:55 Temperature Temperature Source Pulse Rate 74 80 Respiratory Rate Blood Pressure 120/83 H BP Systolic 120 BP Diastolic 83 Pulse Ox 02/28/25 11:15 02/28/25 11:15 05/20/25 11:25 Temperature Temperature Source Pulse Rate 88 Respiratory Rate Blood Pressure 142/86 H 134/77 H BP Systolic 142 134 BP Diastolic 86 77 Pulse Ox 02/28/25 11:25 02/28/25 11:40 02/28/25 11:40 Temperature Temperature Source Pulse Rate 86 91 Respiratory Rate Blood Pressure 137/97 H BP Systolic 137 BP Diastolic 97 Pulse Ox 02/28/25 11:55 02/28/25 11:55 Temperature Temperature Source Pulse Rate 91 Respiratory Rate Blood Pressure 133/90 H BP Systolic 133 BP Diastolic 90 Pulse Ox Weight Weight: 205 lb 0.478 oz Body Mass Index (BMI) 33.0 Physical Exam Const alert, oriented x3 and no apparent distress General Appearance: cooperative Orientation / Consciousness: awake HEENT normocephalic Neck full ROM Lymph Lymphatic: no lymphadenopathy noted Chest inspection of chest normal Resp normal respiratory effort and normal air movement Effort and Inspection: able to speak in complete sentences and symmetric chest movement GI soft to palpation and non-tender Inspection: gravid Palpation: soft; Negative for tender external exam normal Back/Spine normal to inspection Extremity normal to inspection and full ROM Skin no rashes or lesions noted Psych mental status grossly normal Appearance: grossly normal Speech: normal speech Labs Labs Labs: Blood Type O NEGATIVE Antibody Screen NEGATIVE Hct 33.4 % (37-47) L Hgb 11.0 g/dL (12.0-15.0) L Obstetrics Ultrasound Syphilis Total Ab Nonreactive (Nonreactive) Rubella IgG Antibody Reactive (Nonreactive) Hep Bs Antigen Non-Reactive (Nonreactive) Hepatitis C Antibody Non-Reactive (Nonreactive) Chlamydia DNA (MARISA) Negative (Negative) N.gonorrhoeae DNA (MARISA) Negative (Negative) HIV 1&2 Antibody Nonreactive (Nonreactive) Glucose 1 Hr 50 gm 135 mg/dL (70-140) Gest Glucose Tolerance MG/DL Assessment & Plan (1) Encounter for induction of labor: COMMENT: GHTN 37.6 PLAN: Patient presents IOL, plan management for with pitocin/AROM. Pain management: plans epidural. GBS negative. Management of any complications: see list I have reviewed the [facility] and made any clinically relevant updates. Dr Glass aware of assessment, plan and admission. agrees with above (2) Abnormal glucose affecting : COMMENT: passed 3 hour (3) Supervision of high-risk : QUALIFIERS: Trimester: second trimester Qualified Code(s): O09.92 - Supervision of high risk , unspecified, second trimester COMMENT: PRR, , SHANI 03/15/25, girl PC Henrik, Nahun (4) : QUALIFIERS: Weeks of gestation: 37 weeks Qualified Code(s): Z 3A.37 - 37 weeks gestation of COMMENT: NIPT low risk, female & Carrier testing. nl anatomy (echogenic foci), GBS neg. (5) Obesity affecting : QUALIFIERS: Trimester: second trimester Obesity type affecting : unspecified obesity Qualified Code(s): O99.212 - Obesity complicating , second trimester COMMENT: HgbA1c (6) Rh negative status during : QUALIFIERS: Trimester: second trimester Qualified Code(s): O26.892 - Other specified related conditions, second trimester; Z67.91 - Unspecified blood type, Rh negative COMMENT: O NEGATIVE, rhogam PRN; Baby Rh neg-rhogam deferred Charges/Coding Multi Select Codes Urinary/Genital Urinary/Genital CPT Codes: No Charge
[2025-02-28 13:12] LABS: Syphilis Antibodies Nonreactive (Nonreactive)
[2025-02-28] MEDS: Oxytocin 15 Units/NS 250ml 15 UNITS/250 ML IV.SOLN 2 UNITS IV (13:51)
[2025-02-28] MEDS: Lactated Ringers 1,000 ML 50 ML IV (13:51)
[2025-02-28] MEDS: Lactated Ringers 1,000 ML 999 ML IV (16:20)
--- NOTE | 2025-02-28 16:23 | PCM.PN.BLA ---
Progress Note Coping well with contractions- requesting epidural prior to AROM current tracing: FHT: 130 Moderate variability reactive no decelerations category I tracing [place]: 2-3 Contractions Membranes:intact SVE:5/80/0 A/P: Continue with position changes Titrate pitocin per protocol Epidural per anesthesia GBS neg Anticipate Dr Glass aware of above assessment and agrees with plan of care Assessment & Plan Assessment/Plan (1) Encounter for induction of labor: (2) Abnormal glucose affecting : (3) Supervision of high-risk : QUALIFIERS: Trimester: second trimester Qualified Code(s): O09.92 - Supervision of high risk , unspecified, second trimester (4) : QUALIFIERS: Weeks of gestation: 37 weeks Qualified Code(s): Z3A.37 - 37 weeks gestation of (5) Obesity affecting : QUALIFIERS: Trimester: second trimester Obesity type affecting : unspecified obesity Qualified Code(s): O99.212 - Obesity complicating , second trimester (6) Rh negative status during : QUALIFIERS: Trimester: second trimester Qualified Code(s): O26.892 - Other specified related conditions, second trimester; Z67.91 - Unspecified blood type, Rh negative Multi Select Codes Urinary/Genital Urinary/Genital CPT Codes: No Charge
[2025-02-28] MEDS: fentaNYL-bupivacaine (epidural) 100 ML BAG EPIDURAL (17:05)
--- NOTE | 2025-02-28 17:53 | PN_ITS ---
Progress Note comfortable with epidural current tracing: FHT: 135 Moderate variability reactive no decelerations category I tracing [place]: 2-3 Contractions Membranes:ruptured clear SVE:6/80/0 A/P: Continue with position changes Titrate pitocin per protocol Epidural per anesthesia GBS neg Anticipate Dr Glass aware of above assessment and agrees with plan of care Assessment & Plan Assessment/Plan (1) Encounter for induction of labor: (2) Abnormal glucose affecting : (3) Supervision of high-risk : QUALIFIERS: Trimester: second trimester Qualified Code(s): O09.92 - Supervision of high risk , unspecified, second trimester (4) : QUALIFIERS: Weeks of gestation: 37 weeks Qualified Code(s): Z3A.37 - 37 weeks gestation of (5) Obesity affecting : QUALIFIERS: Trimester: second trimester Obesity type affecting : unspecified obesity Qualified Code(s): O99.212 - Obesity complicating , second trimester (6) Rh negative status during : QUALIFIERS: Trimester: second trimester Qualified Code(s): O26.892 - Other specified related conditions, second trimester; Z67.91 - Unspecified blood type, Rh negative Multi Select Codes Urinary/Genital Urinary/Genital CPT Codes: No Charge
--- NOTE | 2025-02-28 19:07 | EX.PCM.OBVAG ---
Assessment & Plan (1) Vaginal delivery: COMMENT: KW IOL GHTN girl (2) Encounter for induction of labor: COMMENT: GHTN 37.6 (3) Abnormal glucose affecting : COMMENT: passed 3 hour (4) Supervision of high-risk : QUALIFIERS: Trimester: second trimester Qualified Code(s): O09.92 - Supervision of high risk , unspecified, second trimester COMMENT: PRR, , SHANI 03/15/25, girl PC Henrik, Nahun (5) : QUALIFIERS: Weeks of gestation: 37 weeks Qualified Code(s): Z3A.37 - 37 weeks gestation of COMMENT: NIPT low risk, female & Carrier testing. nl anatomy (echogenic foci), GBS neg. (6) Obesity affecting : QUALIFIERS: Trimester: second trimester Obesity type affecting : unspecified obesity Qualified Code(s): O99.212 - Obesity complicating , second trimester COMMENT: HgbA1c (7) Rh negative status during : QUALIFIERS: Trimester: second trimester Qualified Code(s): O26.892 - Other specified related conditions, second trimester; Z67.91 - Unspecified blood type, Rh negative COMMENT: O NEGATIVE, rhogam PRN; Baby Rh neg-rhogam deferred Maternal Data Information SHANI Calculator Estimated Delivery Date Method Current WG Current Estimate 03/15/25 Ultrasound #1 37w 6d Other Estimates 03/12/25 Ultrasound #2 38w 2d Final SHANI: 02/28/25 Final SHANI Source: US >20 weeks Gestational age: 37.6 Vaginal Delivery Maternal Presentation Maternal Presentation: Active Labor Maternal Presentation: Presented to unit for induction of labor for Type of Induction: Pitocin Medical Reason for Induction: Gestational Hypertension Vaginal Delivery Information Procedure Performed: Spontaneous Vaginal Delivery Surgeon/Practitioner: Karley Mcmanus Date of Procedure: 02/28/25 Pre-Procedure Diagnosis: see problem list Post-Procedure Diagnosis: same Type of anesthesia: Epidural Estimated Blood Loss: 200 Time of Delivery: 18:54 Findings Description of procedure: Progressed well to 10cm dilated and made steady progress with effective maternal pushing. Delivered the head in ULISSES presentation. The head was delivered atraumatically and no nuchal cord was identified. The anterior and posterior shoulders delivered without complication followed by the rest of the infant and the infant was placed on the maternal abdomen. Delayed cord clamping was employed for approximately 3 minutes. Cord was clamped and cut and gentle traction was applied to the cord and the placenta delivered spontaneously. Immediately following, it was noted to be intact with a 3 vessel cord. Uterine bleeding stable. The perineum and vagina were inspected and noted to have a first degree bilateral labial laceration which was repaired with 3-0 Vicryl in the usual fashion. EBL was 200. Patient and tolerated delivery well. Apgars 9/9. Dr Glass notified of vaginal delivery and orders reviewed. Physician agrees with current plan of care. 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
--- NOTE | 2025-02-28 19:14 | PCM.DC ---
Discharge Instructions Diet Discharge Diet: No restrictions DC O2, CPAP, BIPAP needs Home O2 Discharge instructions: No Dressing / Incision Discharge Activity: Return to Normal Activity May resume sexual activity in: 6-8 weeks Dressing / Incision Call your doctor if you observe: Fever of 101 or Higher, Coldness, Increased Pain, Numbness or Tingling, Change in Color, Inability to urinate, Inability to have a bowel movement, Using more than 1 pad per hour, Shortness of breath, Dizziness, Fainting spells, Swelling in the ankles, Chest pain, Increased palpitations (irregular heartbeat), Calf discomfort and Uncontrolled pain Follow Up Care Please Follow Up With: Karley Mcmanus CNM When: Please call the office to schedule your follow up appointment in 6 weeks. If you had high blood pressure please call to schedule an appointment in 2 weeks. Test Results: Test results from this visit will be discussed in further detail at your follow-up appointment, if applicable. Discharge Plan Admission Admit Date/Time: 02/28/25 12:03 Attending Provider: Karley Mcmanus Primary Care Provider: Care Physician,Luanne Primary Discharge Orders/Prescriptions Prescriptions: No Action PNV-[place] 28-1-300 mg capsule 1 cap PO ferrous sulfate [Iron (ferrous sulfate)] 325 mg (65 mg iron) tablet 325 mg PO QDAY Referrals / Follow Up: Care Physician,Luanne Primary [Primary Care Provider] -
[2025-02-28] MEDS: Oxytocin 15 Units/NS 250ml 15 UNITS/250 ML IV.SOLN 83 UNITS IV (19:51)
[2025-03-01 00:02] VITALS: BP 137/90; PULSE 99; RESP 16; TEMP 37; O2SAT 96
[2025-03-01 04:02] VITALS: BP 127/89; PULSE 78; RESP 18; TEMP 36.3; O2SAT 96
[2025-03-01 08:10] VITALS: BP 127/90; PULSE 72; RESP 16; TEMP 36.2; O2SAT 96
--- NOTE | 2025-03-01 08:57 | PN.OBGYN_ITS ---
Subjective Subjective Patient doing well without complaints. Tolerating PO. Ambulating and voiding without difficulty. Feeding well. Denies chest pain, shortness of breath, calf pain/swelling, fevers, chills, lightheadedness. Objective Data Objective Data Vital Signs: Vital Signs Temp Pulse Resp BP Pulse Ox O2 Del Method 97.2 F L 72 16 127/90 H 96 Room Air 03/01/25 08:10 03/01/25 08:10 03/01/25 08:10 03/01/25 08:10 03/01/25 08:10 03/01/25 08:15 Oxygen Delivery Method Room Air Weight: 205 lb 0.478 oz Body Mass Index (BMI) 33.0 Intake & Output: Intake and Output for Last 24 Hours 02/27/25 02/28/25 03/01/25 23:59 23:59 23:59 Intake Total 1566.50 / 1566.50 Output Total 400 / 400 Balance 1166.50 / 1166.50 Lab / Micro Data 02/28/25 10:00 02/28/25 10:00 Labs: Laboratory Results - last 24 hr 02/28/25 09:00: U Random Total Protein 45.6 H, Urine Creatinine 232.00 H, Protein/Creatinin Ratio 197 02/28/25 10:00: WBC 7.7, RBC 4.48, Hgb 11.0 L, Hct 33.4 L, MCV 74.6 L, MCH 24.6 L, MCHC 32.9, RDW Std Deviation 38.0, RDW Coeff of Pattie 14.3, Plt Count 212, MPV 10.4, Creatinine 0.53 L, Estim Creat Clear Calc 188.05, Est GFR (MDRD) Non-Af 133, Uric Acid 4.8, AST 15, ALT 15, Syphilis Total Ab Nonreactive, Blood Type O NEGATIVE, Antibody Screen NEGATIVE ROS Constitutional Constitutional: Denies chills, fatigue, fever(s), poor appetite or weakness Eyes Eyes: Denies blurry vision, change in vision, seeing flashes or spots in vision ENT HEENT: Denies dizziness, headache(s), loss taste/smell or sore throat Cardiovascular Cardiovascular: Denies chest pain, dizziness, dyspnea, irregular heart rhythm, palpitations or rapid heart rate Respiratory/Chest Respiratory/Chest: Denies chest tightness, cough, dyspnea or breast pain Gastrointestinal Gastrointestinal: Denies abdominal pain, constipation or vomiting Genitourinary Genitourinary: Denies dysuria or flank pain Musculoskeletal Musculoskeletal: Denies difficulty walking, joint pain, limited range of motion or numbness Neurologic Neurologic: Denies abnormal movements, abnormal speech, dizziness, numbness, seizure-like activity or syncope Psychiatric Psychiatric: Denies anxiety, behavioral changes, change in appetite, confusion, depression or suicidal thoughts Physical Exam Const alert, oriented x3 and no apparent distress General Appearance: cooperative and comfortable Resp normal respiratory effort Cardio regular rate GI normal to inspection, nondistended, normoactive bowel sounds GI Narrative: uterus is firm below umbilicus Palpation: soft Back/Spine no CVA tenderness and thoraco-lumbar ROM normal Extremity normal to inspection, no clubbing, cyanosis or edema, no calf tenderness and no pedal edema Psych mental status grossly normal, thought process normal, cooperative, affect normal, speech normal, activity/motor behavior normal, denies homicidal ideation and denies suicidal ideation Assessment & Plan (1) Vaginal delivery: COMMENT: KW IOL GHTN girl (2) Encounter for induction of labor: COMMENT: GHTN 37.6 (3) Abnormal glucose affecting : COMMENT: passed 3 hour (4) Supervision of high-risk : QUALIFIERS: Trimester: second trimester Qualified Code(s): O09.92 - Supervision of high risk , unspecified, second trimester COMMENT: PRR, , SHANI 03/15/25, girl PC Henrik, Nahun (5) : QUALIFIERS: Weeks of gestation: 37 weeks Qualified Code(s): Z 3A.37 - 37 weeks gestation of COMMENT: NIPT low risk, female & Carrier testing. nl anatomy (echogenic foci), GBS neg. (6) Obesity affecting : QUALIFIERS: Trimester: second trimester Obesity type affecting : unspecified obesity Qualified Code(s): O99.212 - Obesity complicating , second trimester COMMENT: HgbA1c (7) Rh negative status during : QUALIFIERS: Trimester: second trimester Qualified Code(s): O 26.892 - Other specified related conditions, second trimester; Z67.91 - Unspecified blood type, Rh negative COMMENT: O NEGATIVE, rhogam PRN; Baby Rh neg-rhogam deferred PLAN: Plan s/p PPD # 1 1. routine post delivery care 2. breast feeding- support given 3. rh negative- work up ordered 4. rubella immune
[2025-03-01 12:32] VITALS: BP 150/92; PULSE 80; RESP 16; TEMP 36.5; O2SAT 97
[2025-03-01] MEDS: NIFEdipine 30 MG Tablet PO (13:33)
[2025-03-01 16:41] VITALS: BP 135/92; PULSE 68; RESP 16; TEMP 36.6
[2025-03-01 19:45] VITALS: BP 137/93; PULSE 86; RESP 16; TEMP 36.9; O2SAT 97
[2025-03-02 02:00] VITALS: BP 132/90; PULSE 91; RESP 16; TEMP 36.8; O2SAT 97
[2025-03-02] MEDS: Acetaminophen 500 MG Tablet 1000 MG PO (04:40)
[2025-03-02 08:03] VITALS: BP 131/96; PULSE 74; RESP 16; TEMP 35.9
[2025-03-02] MEDS: NIFEdipine 30 MG Tablet PO (08:20)
--- NOTE | 2025-03-02 09:21 | PCM.PN.OB ---
Subjective Subjective Patient doing well without complaints. Tolerating PO. Ambulating and voiding without difficulty. feeding well. Denies chest pain, shortness of breath, calf pain/swelling, fevers, chills, lightheadedness. Objective Data Objective Data Vital Signs: Vital Signs Temp Pulse Resp BP Pulse Ox O2 Del Method 96.6 F L 74 16 131/96 H 97 Room Air 03/02/25 08:03 03/02/25 08:03 03/02/25 08:03 03/02/25 08:03 03/02/25 02:00 03/02/25 02:00 Oxygen Delivery Method Room Air Weight: 205 lb 0.478 oz Body Mass Index (BMI) 33.0 Intake & Output: Intake and Output for Last 24 Hours 02/28/25 03/01/25 03/02/25 23:59 23:59 23:59 Intake Total 1566.50 / 1566.50 Output Total 400 / 400 Balance 1166.50 / 1166.50 Lab / Micro Data 02/28/25 10:00 02/28/25 10:00 ROS Constitutional Constitutional: Reports systems reviewed and no addt'l complaints, except as documented Cardiovascular Cardiovascular: Reports systems reviewed and no addt'l complaints, except as documented Respiratory/Chest Respiratory/Chest: Reports systems reviewed and no addt'l complaints, except as documented Gastrointestinal Gastrointestinal: Reports systems reviewed and no addt'l complaints, except as documented Physical Exam Const alert, oriented x3 and no apparent distress HEENT Head and Scalp: atraumatic Resp normal respiratory effort GI soft to palpation and non-tender Bimanual Exam - Vag & Uterus: uterus non-tender Uterus Palpation: uterus fundus firm (below Umbilicus) Assessment & Plan (1) Vaginal delivery: COMMENT: KW IOL GHTN girl PLAN: Plan s/p PPD # 2 1. routine post delivery care 2. breast feeding- support given 3. rh positive 4. rubella immune monitor bps give procardia early
[2025-03-02 09:36] VITALS: BP 129/94; PULSE 73
[2025-03-02 12:20] VITALS: BP 121/86; PULSE 69; RESP 16; TEMP 36.4
== END 2025-03-02 13:30 | disposition home or self-care (01) | DRG 807 ==
LOC: WPOUT 12:07 → WP 12:07
PROVIDERS: Admitting Provider Advanced Practice Midwife; Referring Provider Advanced Practice Midwife; Visit Provider Advanced Practice Midwife
DX: O13.3 Gestational [pregnancy-induced] hypertension without significant proteinuria, third trimester (principal); Z37.0 Single live birth; E66.9 Obesity, unspecified; O99.214 Obesity complicating childbirth; O70.0 First degree perineal laceration during delivery; Z3A.37 37 weeks gestation of pregnancy; Z87.891 Personal history of nicotine dependence
CPT/HCPCS: 59025; 59050; 82565; 82570; 84156; 84450; 84460; 84550; 85027; 86780; 86850; 86900; 86901; 99221; A4216; G0378

== ENCOUNTER → 2025-04-13 | Outpatient (CLI) | payer OTHER, SELFPAY | END | disposition home or self-care (01) | LOC: LABSPEC 16:01 | PROVIDERS: Visit Provider Advanced Practice Midwife | DX: Z12.4 Encounter for screening for malignant neoplasm of cervix (principal) | CPT/HCPCS: 88175; G0145 ==